=== PATIENT | female | born 1970 | race Caucasian/White ===

== ENCOUNTER 2016-09-24 07:08 | Emergency (ER) | payer OTHER ==
[~2016-09-24] VITALS: Ht 154.9 cm; Wt 72.6 kg
[2016-09-24 07:12] VITALS: BP 125/84
--- NOTE | 2016-09-24 07:16 | ED GI/GU/ABDOMINAL COMPLAINT ---
History of Present Illness General Chief Complaint: Female Urogenital Problems Stated Complaint: FREQUENT UNRINATION Source: patient, old records Exam Limitations: no limitations Vital Signs & Intake/Output Vital Signs & Intake/Output Vital Signs Date Time Temp Pulse Resp B/P B/P Pulse O2 O2 Flow FiO2 Mean Ox Delivery Rate 09/24 0712 97.6 100 16 125/84 97 Room Air Allergies Coded Allergies: No Known Allergies (09/24/16) Reconcile Medications Tolterodine Tartrate (Detrol LA) 2 MG CAP.ER.24H 1 CAP PO DAILY OVERACTIVE BLADDER Triage Note: PT STATES SHE IS HAVING FEQUENT URINATION FOR A COUPLE DAYS. PT DENIES BURNING PT STATES HER SHE IS HAVING BACK PAIN AND A LITTLE ABD DISCOMFORT. Triage Nurses Notes Reviewed? yes ? N Is pt currently ? No HPI: Patient presents with a two-day history of frequent urination. Patient denies any pain with urination. She does not notice that she is drinking more freely. There is no discoloration or foul odor to her urine. She is expressing a sense of urgency. Patient states that she feels like she is going every hour on the hour. She denies any abdominal pain or back pain. There are no fevers or chills. Patient states last time she saw her doctor she was told that she was prediabetic. Patient's fingerstick here in the ER is 104. Past History Travel History Traveled to [place] past 21 day No Medical History Any Pertinent Medical History? see below for history Cardiovascular: hypertension Endocrine: "PRE-DIABETIC" Surgical History Surgical History: non-contributory Psychosocial History What is your primary language Bhutanese Tobacco Use: Never used ETOH Use: occasional use Illicit Drug Use: denies illicit drug use Family History Hx Contributory? No Review of Systems Review of Systems Constitutional: Reports: no symptoms. Respiratory: Reports: no symptoms. Cardiovascular: Reports: no symptoms. GI: Reports: no symptoms. Genitourinary: Reports: see HPI, frequency. Musculoskeletal: Reports: no symptoms. Neurological/Psychological: Reports: no symptoms. Immunologic/Allergic: Reports: no symptoms. Physical Exam Physical Exam General Appearance: well developed/nourished, alert, awake Head: atraumatic Eyes: Bilateral: PERRL, EOMI. Neck: normal inspection, supple, full range of motion Gastrointestinal: normal bowel sounds, soft, non-tender, no organomegaly Back: normal inspection, normal range of motion, NO CVA TENDERNESS Neurologic/Psych: no motor/sensory deficits, awake, alert, oriented x 3, normal gait, normal mood/affect Core Measures ACS in differential dx? No Severe Sepsis Present: No Septic Shock Present: No Progress Differential Diagnosis: UTI/pyelo, HYPERGLYCEMIA Plan of Care: Orders Procedure Date/time Status URINALYSIS 09/24 0716 Complete Laboratory Tests 09/24/16 0737: Urine Color YEL, Urine Clarity CLEAR, Urine pH 6.0, Ur Specific [place] 1.010, Urine Protein NEG, Urine Ketones NEG, Urine Nitrite NEG, Urine Bilirubin NEG, Urine Urobilinogen 0.2, Ur Leukocyte Esterase NEG, Ur Microscopic EXAM NOT REQUIRED, Urine Hemoglobin NEG, Urine Glucose NEG Initial ED EKG: none Comments: Patient's UA is negative. The bladder scanner is broken. Patient will be straight cath after urination check a postvoid residual to rule out urinary retention with overflow incontinence. STRAIGHT CATH <5ML Departure Departure Disposition: HOME OR SELF CARE Condition: Stable Clinical Impression Primary Impression: Overactive bladder Referrals: ELPIDIO VELASCO,ROSE (PCP/Family) MARIA G VELASCO,PINEDA Additional Instructions: FOLLOW UP WITH DR. CUMMINS TAKE DETROL PRESCRIBED RETURN FOR ANY CONCERNS Departure Forms: Customer Survey General Discharge Information Prescriptions: Current Visit Scripts Tolterodine Tartrate (Detrol LA) 1 CAP PO DAILY #30 CAP
[2016-09-24] MEDS ORDERED: DETROL LA2 M1 PO (08:33)
== END 2016-09-24 08:46 ==
LOC: ERH 07:08
DX: N32.81 Overactive bladder (principal)
CPT/HCPCS: 81003